=== PATIENT | male | born 1960 | race Caucasian/White ===

== ENCOUNTER 2017-02-17 16:33 | Observation (INO) | payer MEDICARE ==
[~2017-02-17] VITALS: Ht 182.9 cm; Wt 95.6 kg
[2017-02-17 16:52] VITALS: BP 138/86; PULSE 87; RESP 20; O2SAT 97
[2017-02-17] MEDS ORDERED: OXYC30TA48 PO (16:56)
[2017-02-17 17:41] LABS: BASOPHILS % (AUTO) 0.2 % (0-3); EOSINOPHILS % (AUTO) 3.7 % (0-5); MONOCYTES % (AUTO) 8.1 % (4-12); Mean Corpuscular Hemoglobin 30.6 pg (27.0-35.0); Mean Corpuscular Volume 90.6 fL (81-100); NEUTROPHILS % (AUTO) 59.6 % (40-74); Platelet Count 182 bil/L (150-400)
[2017-02-17 18:04] LABS: TROPONIN T < 0.010 ug/L (0.0-0.011)
--- NOTE | 2017-02-17 18:07 | ED.REPORT ---
HPI-Chest Pain 40 and Over Date of Service Feb 17, 2017 ED Provider: Luke Coppola MD Pt is a 56 y/o male with a history of 35 surgeries who presents to the ED sent from Cardiology c/o intermittent midsternal chest pain that radiates to L arm onset 7 days ago. Additional symptoms include numbness/tingling in L arm, increased SOB, palpitations, dizziness, lightheadedness, near syncope upon standing, diaphoresis, foot pain, and anxiety. He denies fevers, cough, nausea, or vomiting. In July, a nurse noticed that the pt was having intermittent irregular heartbeat that didn't show up on an EKG. He denies having a heart attack, hypertension, or diabetes. Nursing Notes Stated Complaint: HEART ISSUES Chief Complaint: Chest Pain Nursing Notes Reviewed: Yes Allergies: Coded Allergies: No Known Allergies (Unverified , 02/17/17) Scheduled Aspirin Chew (Aspirin Chew) 81 Mg Chew 81 MG PO HS Ibuprofen (Ibuprofen) 200 Mg Capsule 800 MG PO HS Melatonin (Melatonin) 10 Mg Tablet 30 MG PO HS Multivit-Min/FA/Lycopen/Lutein (Centrum Silver Men Tablet) 300 Mcg-600 Mcg-300 Mcg Tablet 1 EACH PO QAM Oxycodone (Roxicodone) 30 Mg Tablet 30 MG PO 5XD 0600, 1000, 1400, 1800, 2200 Scheduled PRN Oxymetazoline HCl (Nasal [place] Sinus) 30 Ml [place] 1 SPRAY NS BID PRN PRN For Congestion General Time Seen by MD: 18:02 Chief Complaint Chest pain Hx Obtained From: Patient Arrived By: Walk-in Sudden in Onset?: No Onset Occurred: 1 week ago Symptom Duration: Intermittent Quality: Painful Radiation: : Arm left Severity: Current: Mild Severity: Maximum: Moderate Recent Healthcare: No recent doctor visit, No recent hospitalization Similar Sx Previous: No Risk Factors )( CAD Risk Stratification Smoking Risk factors reviewed )( TAD Risk Stratification Risk factors reviewed )( PE Risk Stratification Risk factors reviewed Past Medical History Past Medical History Osteoarthritis Past Surgical History 35 surgeries Smoking History Current Every Day Smoker Ambulatory Status Independent Review of Systems Near syncope Constitutional: Denies: Fever Respiratory: Reports: Shortness of breath, Denies: Non-productive cough, Prod cough, clear Cardiovascular: Reports: Chest pain, Palpitations GI: Denies: Nausea, Vomiting Musculoskeletal: Reports: Extremity pain (Foot pain) Skin: Reports Diaphoresis Neurologic: Reports: Dizziness, Lightheaded, Numbness (in L arm) Psychiatric: Reports: Anxiety Complete sys rev & neg: except as marked. Physical Exam Initial Vital Signs Vital Signs (First) Date Time Temp Pulse Resp B/P Pulse Ox O2 Delivery O2 Flow Rate FiO2 02/17/17 16:52 36.1 87 20 138/86 97 Room Air Initial VS: Reviewed Head / Eyes: Atraumatic, Normocephalic Neck: Supple, Full range of motion Extremities: Vascular intact, Neuro intact, No swelling, No tenderness Skin: Warm, Dry, No cyanosis Neurologic: Alert, Oriented, Nonfocal Psychiatric: Mood/affect normal, Behavior normal, Normal thought content General/Constitutional: Awake, Alert Respiratory / Chest: Atraumatic, No respiratory distress Mild L rhonchi Cardiovascular: Heart rate NL, Regular rhythm, Heart sounds NL, No murmurs Abdomen: Soft, Non-tender Interpretation & Diagnostics Lab Results Interpretation Result Diagram: 02/17/17 1733 02/17/17 1733 Test 02/17/17 17:33 White Blood Count 9.1th/mm3 (3.8-10.1) Red Blood Count 4.67mil/mm3 (4.40-5.80) Hemoglobin 14.3g/dL (13.8-17.2) Hematocrit 42.3% (41.0-50.0) Mean Corpuscular Volume 90.6fL (81-100) Mean Corpuscular Hemoglobin 30.6pg (27.0-35.0) Mean Corpuscular Hemoglobin Concent 33.8% (32.0-37.0) Red Cell Distribution Width 13.3% (12.3-15.4) Platelet Count 182bil/L (150-400) Neutrophils (%) (Auto) 59.6% (40-74) Lymphocytes (%) (Auto) 28.3% (14-46) Monocytes (%) (Auto) 8.1% (4-12) Eosinophils (%) (Auto) 3.7% (0-5) Basophils (%) (Auto) 0.2% (0-3) Sodium Level 137mEq/L (134-144) Potassium Level 4.4mEq/L (3.5-5.2) Chloride Level 101mEq/L (97-108) Carbon Dioxide Level 21mmol/L (18-29) Blood Urea Nitrogen 24mg/dL (6-24) Creatinine 0.81mg/dL (0.76-1.27) Estimat Glomerular Filtration Rate 104mL/min (>59) Glucose Level 130mg/dL (60-99) Calcium Level 9.1mg/dL (8.5-10.1) Magnesium Level 2.1mg/dL (1.6-2.6) Total Bilirubin 0.2mg/dL (0.0-1.2) Aspartate Amino Transf (AST/SGOT) 27U/L (0-50) Alanine Aminotransferase (ALT/SGPT) 23U/L (0-44) Alkaline Phosphatase 86U/L (25-150) Troponin T < 0.010ug/L (0.0-0.011) Total Protein 6.8g/dL (6.4-8.4) Albumin 4.1g/dL (3.4-5.0) ECG Interpretation ECG Interpretation: Sinus rhythm, rate 80 Isolated T wave inversions in [address] changes Time: 17:15 Interpreted by: ED physician X-Ray Chest Interpretation Chest Xray Interpretation: IMPRESSION: Mild or early left lower lobe pneumonia. Dictated by: Talat Donnelly M.D. on 02/17/2017 at 18:22 Approved by: Talat Donnelly M.D. on 02/17/2017 at 18:23 View: Portable, 1 view Interpretation / Wet Read by: Interpret - Radiologist Re-Eval/Medical Decision Med Decision/Clinical Course 56-year-old male history of smoking presenting with chest pain on exertion and at rest over the last couple weeks. He was seen in cardiology and was found to be in bigeminy. His EKG here is normal sinus rhythm. Troponins initially are negative. Chest x-ray with left-sided pneumonia. His chest pain is associated dyspnea and dizziness. I have low suspicion based on the story that this is related to his pneumonia. I am concerned about unstable angina. I discussed with cardiology recommended admission for stress test in the morning. Heparin gtt started. Source of Hx: Old records Time of Eval: 19:24 Re-Evaluation/Progress Note: Pt rechecked. Discussed plan for admission. Pt understands and agrees with plan. All questions addressed. Consultation #1: Referral / Consult Name: Maria R Gipson MD Call Returned at: 18:54 Globe Changer: Agrees with eval, Agrees with plan Note: Discussed pt's case with drafter electronic, Dr. Gipson. He recommends admission and ok with Heparinization. Consultation #2: Referral / Consult Name: Fazal Ochoa MD Consulted With: Hospitalist Call Returned at: 19:32 Globe Changer: Will see patient, Agrees with plan, Accepts admit Note: Discussed pt's case with hospitalist, Dr. Ochoa. He accepts admission. Counseled Regarding: Diagnosis, Lab results, Need for admission Discharge & Departure Primary Impression: Unstable angina Additional Impressions: Chest pain Chest pain type: unspecified Qualified Code: R07.9 - Chest pain, unspecified Pneumonia Pneumonia type: due to unspecified organism Laterality: unspecified laterality Lung location: unspecified part of lung Qualified Code: J18.9 - Pneumonia, unspecified organism Disposition: ADMITTED TO HOSPITAL Discharge Condition All VS Reviewed: Yes Condition: Stable Referrals: NOPCP (PCP) Crit Care Except Billable Proc Time Spent: 75-104 minutes Services Performed: Patient management by me, Time spent at bedside, Reviewing test results, Reviewing imaging, Discussing patient care, Documentation in record, Time with fam/surrogate Scribe Attestation Portions of this note were transcribed by Leonor Montano. I, Dr. Coppola, personally performed the history, physical exam and medical decision-making; I reviewed and confirmed the accuracy of the information in the transcribed note. Luke Coppola MD Feb 17, 2017 18:07 Leonor Montano Feb 17, 2017 18:30
[2017-02-17 18:14] LABS: Magnesium 2.1 mg/dL (1.6-2.6)
--- NOTE | 2017-02-17 18:24 | DRSVH ---
PROCEDURE: X-RAY CHEST ONE VIEW, PORTABLE ([id number]) INDICATIONS: pain TECHNIQUE: One view of the chest was acquired. COMPARISON: None. FINDINGS: Surgical changes and devices: None. Lungs and pleura: No pleural effusions or pneumothorax. Lungs are abnormal with a pneumonia pattern at the left lower lobe just above the diaphragm. Mediastinum: Mediastinal contours appear normal. Heart size is normal. Bones and chest wall: No suspicious bony lesions. Overlying soft tissues appear unremarkable. IMPRESSION: Mild or early left lower lobe pneumonia. Dictated by: Talat Donnelly M.D. on 02/17/2017 at 18:22 Approved by: Talat Donnelly M.D. on 02/17/2017 at 18:23
[2017-02-17 18:34] VITALS: BP 130/70; PULSE 80; RESP 16; O2SAT 97
[2017-02-17] MEDS ORDERED: Azithromycin Inj 500 MG in Dextrose 5% 250 ML IV ONE (19:05)
[2017-02-17] MEDS ORDERED: Heparin 25K Unit/500mL 0.45 NS 25,000 UNIT in IV Premix 1 EACH IV ONE (19:05)
[2017-02-17] MEDS ORDERED: Heparin 5,000 Unit/mL Inj IVPUSH ONE (19:05)
[2017-02-17] MEDS ORDERED: cefTRIAXone Inj 2,000 MG in Dextrose 5% Minibag Plus 50 ML IV ONE (19:05)
[2017-02-17] MEDS ORDERED: Ondansetron 2 mg/mL 2 mL Inj IVPUSH PRN ×2 (19:35→20:00)
[2017-02-17] MEDS ORDERED: Alum-Mag Hydrox-Simeth 30 mL Suspension PO PRN ×2 (19:35→20:00)
[2017-02-17] MEDS ORDERED: Polyethylene Glycol (PEG) 17 Gm Powder PO PRN (20:00)
[2017-02-17] MEDS ORDERED: Heparin 25K Unit/500mL 0.45 NS 25,000 UNIT in IV Premix 1 EACH IV SCH (20:00)
[2017-02-17] MEDS ORDERED: OXYM30SP19 NS (20:01)
[2017-02-17] MEDS ORDERED: IBUP200C PO (20:01)
[2017-02-17] MEDS ORDERED: MULT-1104 PO (20:01)
[2017-02-17] MEDS ORDERED: ASPI81TA3 PO (20:01)
[2017-02-17] MEDS ORDERED: MELA10TA2 PO (20:01)
[2017-02-17 20:15] VITALS: BP 121/61; PULSE 71; RESP 16; O2SAT 93
--- NOTE | 2017-02-17 20:16 | PCM.HPMED ---
Subjective Date of Service Feb 17, 2017 Primary Provider: Admitting Physician: Fazal Ochoa MD Primary Care Physician: Marisol Attending Physician: Fazal Ochoa MD Admit Status: From the Emergency Department Chief Complaint: Chest pain, dizziness History of Present Illness: Mr. Miranda is a 56-year-old male with past medical history significant for 35 bone and joint surgeries, who presented to the ED from his appointment with Dr. Ballard of cardiology for intermittent substernal chest pain and near syncopal episodes. He reports a couple month history of near syncopal episodes but that they have gotten more frequent lately, last longer, and have some associated chest pain. He says the pain can radiate into his left arm, causing numbness and tingling in the his heart feels as if it is palpitating. He has no prior cardiac history, however a recent EKG on 02/14/2017 showed PVCs with bigeminal patterns. He denies any fevers, chills, shortness of breath, lower extremity edema, productive cough, nausea or vomiting. He mentioned some issues breathing at night but unable to express if this is nidia orthopnea or not. Review of Systems: A comprehensive review of systems was performed and negative except as in history of present illness Allergies Coded Allergies: No Known Allergies (Unverified , 02/17/17) Home Medications Oxycodone (Roxicodone) 30 Mg Tablet 30 MG PO Q6H PRN PRN For Pain PMH Osteoarthritis Surgical History 35 histories, mostly bone and joint for osteoarthritis Family History Denies any cardiac history Social History Hx Alcohol Use: No Hx Substance Use: No Hx Tobacco Use: Yes Smoking Status: Current Every Day Smoker (1.5 ppd) Living Arrangement: Alone Exam Vital Signs Vital Sign - Last Date Time Temp Pulse Resp B/P Pulse Ox O2 Delivery O2 Flow Rate FiO2 02/17/17 18:34 80 16 130/70 97 Room Air 02/17/17 16:52 36.1 Exam Gen.: Elderly gentleman standing upright stretching, leaning on cane in no acute distress HEENT: NCAT, PERRLA, EOMI. Membranes pink and moist. No exudate or cobblestoning in the oropharynx. Neck: Supple, JVD or thyromegaly. CV: Regular rate and rhythm, no murmurs, rubs, gallops. Pulmonary: Rhonchi notable left lung base, otherwise clear. No wheezes or rales. Abd: Soft, nontender, nondistended. Bowel sounds present. No guarding or rebound. Extremities: No clubbing, cyanosis, edema. Neuro: alert and oriented 3, CN II through XII intact. Muscle strength 5 globally without focal deficit. He ambulates with a cane. Psych: Slightly anxious. Lab and Diagnostics Result Diagram: 02/17/17 1733 02/17/17 1733 X-Rays, CTs and MRIs Chest XR 02/17/17 IMPRESSION: Mild or early left lower lobe pneumonia. Dictated by: Talat Donnelly M.D. on 02/17/2017 at 18:22 Approved by: Talat Donnelly M.D. on 02/17/2017 at 18:23 12-lead ECG ECG Interpretation: Sinus rhythm, rate 80 Isolated T wave inversions in [address] changes Assessment & Plan Mr. Miranda is a 56-year-old male with past medical history significant for 35 bone and joint surgeries, who presented to the ED from his appointment with Dr. Ballard of cardiology for intermittent substernal chest pain and near syncopal episodes that have increased in frequency and longevity. Chest pain, present on admission. Acute. Ongoing. - Likely unstable angina due to: Intermittent chest pain in a smoker, no ST elevation on EKG, negative troponin - EKG done in the ED again showed no ST changes - Dr. Gipson cardiology consulted, appreciate his recommendations: Heparin drip initiated Stress test ordered for morning - Monitor on telemetry - Trending troponin every 6h x2 Left lower lobe community-acquired pneumonia, present on admission. Acute. Ongoing. - Chest x-ray significant for left lower lobe consolidation - Continue ceftriaxone 2 g daily and azithromycin 500 mg daily - Pro calcitonin ordered - Monitor white count, patient symptoms/vitals - Consider repeat chest x-ray in a day or 2 Osteoarthritis, present on admission. Chronic. - Continue home oxycodone regimen 30 mg every 6 hours Tobacco use disorder, present on admission. Chronic. - Patient smokes 1.5 packs per day - Cessation counseled but patient is uninterested at this time - Nicotine patch as needed - Nicotine lozenge as needed if patch is not sufficient Acetaminophen as needed for mild pain, fever, headache. Bowel regimen as needed. Zofran for nausea as needed. Heparin drip for DVT prophylaxis. Patient status: Patient was admitted for observation with likely length of stay <2 midnights due to severity of presenting symptoms, medical workup, and overall treatment plan. Pain Evaluation: Adequate Pain Control VTE Prophylaxis: Other (heparin drip) Resuscitation Status: CPR: Attempt Resuscitation Froylan Wiley DO Feb 17, 2017 20:16 Fazal Ochoa MD Feb 18, 2017 06:38
[2017-02-17 20:27] VITALS: BP 118/74; PULSE 64; RESP 18; O2SAT 95
--- NOTE | 2017-02-17 22:43 | NUR ---
Admit Patient admitted to room 3028 at 2020 from ED, accompanied by son. Alert and oriented, able to answer all questions. Oriented to room, call light, plan of care, policies, intentional rounding. To be NPO at midnight for planned stress test, on heparin infusion, telemetry. Denies chest pain, reports chronic back pain. SBA to restroom, son staying overnight to assist. Call light within reach, intentional rounding.
[2017-02-17 22:55] VITALS: PULSE 87
[2017-02-18] VITALS (7 sets, daily range): BP systolic 114–144; BP diastolic 71–90; PULSE 51–83; RESP 16–18; O2SAT 94–98
--- NOTE | 2017-02-18 04:04 | NUR ---
Med List/Oxycodone Patient unsure of some of his doses of medication, med list not entered. For Oxycodone, patient states he takes 30mg "five times per day". Patient said he takes it at "6am, 10am, 2pm, 6pm, 10pm, and then again at 2am". Informed patient that his time schedule is six times per day, and wrote it on the board for visual. Patient verbalized understanding and said that he should be okay to miss the 2am dose - MD ordered 5x day. Patient woke up at 0330, stated that he thinks he is withdrawing and had 6/10 pain and chills. Patient adamantly requested the 0600 dose to be given at this time. Administered 0600 dose at 0350, notified MD. said that he would ask day team to verify oxycodone schedule, will pass on to day RN.
[2017-02-18] MEDS: Heparin 5,000 Unit/mL Inj IVPUSH PRN ×2 (04:46→16:47)
--- NOTE | 2017-02-18 04:49 | NUR ---
Heparin PTT result at 0440 was 36.5. Patient given 3000 units Heparin IV bolus, rate increased by 100 units/hr from 1000 to 1100 units/hr. Dose verified with second RN, patient updated on intervention.
[2017-02-18 08:38] LABS: BASOPHILS % (AUTO) 0.3 % (0-3); EOSINOPHILS % (AUTO) 5.3 % (0-5); MONOCYTES % (AUTO) 9.2 % (4-12); Mean Corpuscular Hemoglobin 30.7 pg (27.0-35.0); Mean Corpuscular Volume 91.8 fL (81-100); Platelet Count 175 bil/L (150-400)
--- NOTE | 2017-02-18 09:01 | NUR ---
Off Unit Pt. off unit to Nuc Med at 0850. Pt. declined Lorazepam IV prior to leaving unit but requested that it be available if needed for claustrophobia. Nuc med aware. Pt. left unit via wheelchair with transporter. Accompanied by son.
[2017-02-18 09:06] LABS: Magnesium 2.1 mg/dL (1.6-2.6)
--- NOTE | 2017-02-18 12:46 | NUR ---
Case Management: Attempted to explain COT[place] to pt. but he was adamant that we he didn't have Medicare of any form and refused to listen or sign. Arielle DIAZ RN
--- NOTE | 2017-02-18 13:20 | DRSVH ---
PROCEDURE: 1 DAY PHARMACOLOGICAL STRESS TEST Rest and pharmacological stress myocardial perfusion SPECT with gated imaging and ejection fraction RADIOPHARMACEUTICAL: 8.8 mCi Tc-99m tetrafosmin IV at rest and 25.9 mCi Tc-99m tetrafosmin IV at peak effect of pharmacological stress. A [id number]-ymddeinc was performed. INDICATIONS: Unstable angina, chest pain. TECHNIQUE: Radiopharmaceutical was injected at peak stress test, and also at rest. SPECT images wer e obtained. SPECT myocardial perfusion images were displayed in short axis, horizontal long axis, an d vertical long axis views. Gated images were reviewed using [employer] software. COMPARISON: None. CARDIAC STRESS: A pharmacologic stress test was performed under the supervision of an attending staff, using an infus ion of [employer]. Hemodynamic data: Blunted heart rate response to stress. Normal blood pressure response. Symptoms: The patient exhibited chest pressure during PVCs. Aminophylline: 100 mg administered EKG: No diagnostic changes of ischemia. Multiple PVCs are present, which increased with exercise. Fr equent PVCs. 1st degree AV block. FINDINGS: Raw data: There is good myocardial uptake of radiotracer. No significant motion artifacts. Left ventricle function: Gated images demonstrate normal left ventricular wall thickening. No segme ntal wall motion abnormalities. Left ventricle resting end diastolic volume is 125 mL. Left ventric le stress ejection fraction is 46%; normal range is above 45%. Myocardial perfusion: There is normal distribution of activity in the right and left ventricular maria elena cardium. No fixed or reversible perfusion defects. IMPRESSION: 1. No evidence of myocardial ischemia. 2. Normal left ventricular function. 3. Frequent PVCs, which increased during stress. 4. Blunted heart rate response to stress. 5. 1st degree AV block. Dictated by: Chuck De Los Santos M.D. on 02/18/2017 at 13:15 Approved by: Chuck De Los Santos M.D. on 02/18/2017 at 13:18
--- NOTE | 2017-02-18 15:33 | NUR ---
Anxiety/Tele Notified by air sampling and monitoring that pt. has been having bigeminal PVCs Q3-5min. millstone cleaner notified. MD and cushion sewer notified via page. No new orders received at this time. Denied pain but stated he can feel palpitations and very anxious. Lorazepam 0.5mg IV given. Pt. able to sleep briefly but woke up with severe anxiety. Attempted walking in hallways to calm himself. Continues to c/o palpitations. Pt. Vitals 114/83, Tele SR 70s-80s with bigeminal PVCs Q3-5min, O2 97% RA, T 36.5. paged again. No new orders received at this time. Pt. denies pain, nausea/vomiting. Heparin gtt infusing per protocol. Pt. currently sitting in room. Son at bedside. Frequent rounding being performed.
--- NOTE | 2017-02-18 18:31 | PCM.PNMED ---
Subjective Date of Service Feb 18, 2017 Subjective reports continued palpitations and lightheadedness. Also reports significant anxiety and wants to go out to smoke. After long discussion agrees to stay in his room and wait to be seen by cardiology consult Exam Vital Signs Vital Sign - Last Date Time Temp Pulse Resp B/P Pulse Ox O2 Delivery O2 Flow Rate FiO2 02/18/17 15:29 36.5 78 17 114/83 97 Room Air Intake and Output 02/17/17 02/17/17 02/18/17 Cumulative From/Thru 15:00 23:00 07:00 02/17/17 16:52 - 02/18/17 05:40 Intake Total 500 ml 50 ml 550 ml Output Total 600 ml 600 ml Balance 500 ml -550 ml -50 ml Intake Oral 50 ml 50 ml IV Total 500 ml 500 ml Output Urine Total 600 ml 600 ml # Voids 2 2 General: Alert, Cooperative, No Acute Distress Head: Normal Eyes: Scleral Anicteric Nose: Mucous Membr Moist/[place] Mouth: Mucous Membr Moist/[place] Neck: Supple Chest & Lungs: Chest Wall Normal, Clear to auscultation & percussion Cardiovascular: Regular Rate/Rhythm Pulses: NL carotid, radial, femoral, DP, PT Abdomen: Non-tender, Non-distended, Normoactive bowel tones, Soft Extremities: No cyanosis/clubbing/edma bilat Neurological: Grossly Neurologically Intact, Normal Speech IVs and Medications Medications Reviewed: Medications were reviewed in detail Lab and Diagnostics Result Diagram: 02/18/17 0937 02/18/17 0340 X-Rays, CTs and MRIs Chest XR 02/17/17 IMPRESSION: Mild or early left lower lobe pneumonia. Dictated by: Talat Donnelly M.D. on 02/17/2017 at 18:22 Approved by: Talat Donnelly M.D. on 02/17/2017 at 18:23 12-lead ECG ECG Interpretation: Sinus rhythm, rate 80 Isolated T wave inversions in [address] changes Assessment & Plan 56-year-old male with past medical history significant for 35 bone and joint surgeries, who presented to the ED from his appointment with Dr. Ballard of cardiology for intermittent substernal chest pain and near syncopal episodes that have increased in frequency and longevity. # Acute chest pain, present on admission. - Acute MT ruled out with negative Trop - Followup stress test result - Continue with current meds # Acute on somewhat chronic palpitation and lightheadedness - Frequent PVC's noted on Tele - Discussed with cardiology consult today. Will followup with official recs # Suspected left lower lobe community-acquired pneumonia, present on admission. - Chest x-ray significant for left lower lobe consolidation - Afebrile, no leukocytosis, no pulmonary symptoms and procalcitonin negative - Pneumonia seems unlikely. Will stop Abx. # Osteoarthritis, present on admission. Chronic. - Continue home oxycodone regimen 30 mg every 6 hours # Tobacco use disorder, present on admission. Chronic. - Patient smokes 1.5 packs per day - Cessation counseled but patient is uninterested at this time - Nicotine patch as needed - Nicotine lozenge as needed Dispo: 1-2 days pending cardiac workup and cardiology consult recs. VTE Prophylaxis: Other (heparin drip) Resuscitation Status: CPR: Attempt Resuscitation Girish Dominguez Feb 18, 2017 18:31
[2017-02-18] MEDS ORDERED: cefTRIAXone Inj 2,000 MG in Dextrose 5% Minibag Plus 50 ML IV SCH (19:00)
[2017-02-18] MEDS ORDERED: Azithromycin Inj 500 MG in Dextrose 5% w/Vial Mate 250 ML IV SCH (19:00)
--- NOTE | 2017-02-18 19:08 | PROG NOTE ---
[address] [address] PROGRESS NOTE PATIENT: DINORA ORO : 1960 MR#: [id number] ADMIT: 02/17/2017 JOB ID: [id number] DATE: 02/18/2017 CARDIOLOGY PROGRESS NOTE: CHIEF COMPLAINT: The patient came in with shortness of breath and near syncope. He did have findings of bigeminal PVCs on an EKG. During this admission he ruled out by serial cardiac markers. He had a stress test which is read as showing no evidence for ischemia, normal left ventricular function, as well as frequent PVCs which apparently increase during stress. SUBJECTIVE: The patient says he is doing well other than the PVCs. He has not had any syncopal events. PHYSICAL EXAMINATION: Blood pressure in the range of 130s to 140 systolic, heart rates in the 80s, afebrile, sats are 98% on room air. General: In no acute distress. Speaking in full sentences without apparent shortness of breath. Head and neck: Normocephalic, atraumatic. CURRENT MEDICATIONS: Include pain meds, Nicorette gum, and nicotine patch. IMPRESSION: The patient has normal left ventricular (LV) function. No evidence of ischemia on a recent stress test. He is likely symptomatic from frequent premature ventricular contractions (PVCs) perhaps because they are occurring in a bigeminal pattern. PLAN: 1. I am going to start him on low-dose metoprolol, which we can up-titrate as tolerated. 2. I will have to review the full treadmill test to see the morphology of the PVCs because apparently these did increase with exercise. KAYD
[2017-02-19 00:09] VITALS: BP 113/72; PULSE 64; RESP 18; O2SAT 93
[2017-02-19 04:00] VITALS: BP 129/83; PULSE 63; RESP 18; O2SAT 98
[2017-02-19 06:18] VITALS: PULSE 82
[2017-02-19 08:40] VITALS: BP 121/80; PULSE 69; RESP 19; O2SAT 95
[2017-02-19 09:09] VITALS: PULSE 70
--- NOTE | 2017-02-19 11:55 | PROG NOTE ---
[address] [address] PROGRESS NOTE PATIENT: DINORA ORO : 1960 MR#: [id number] ADMIT: 02/17/2017 JOB ID: [id number] DATE: 02/19/2017 CARDIOLOGY PROGRESS NOTE: CHIEF COMPLAINT: The patient came in with shortness of breath and palpitations. He had a stress test that was read as low risk. On the treadmill he did have some PVCs but these became most prominent in the period of recovery and many of them were in a bigeminal pattern. Last night I put him on a low dose of metoprolol and really since yesterday evening he has had no ectopy. He says he is walking around and he feels much better. PHYSICAL EXAMINATION: His blood pressure is 121-129, afebrile, heart rates in the 60s to 80s, sats are 95% on room air. General: In no acute distress. Speaking in full sentences without apparent shortness of breath. Head and neck: Normocephalic, atraumatic. Neck: No obvious JV distention. Heart: Regular. CURRENT MEDICATIONS: Include metoprolol 12.5 b.i.d. and other p.r.n. medications. He is also on aspirin. IMPRESSION: The patient is doing much better with a beta jackie. I am hoping that this is helping with his cessation of symptoms. PLAN: 1. I am going to increase him to t.i.d. metoprolol dosing 12.5 mg. Will give him another dose, have him walk around, and if he continues to feel fairly good we could discharge him home today with plan that I get to see him fairly expeditiously in an office followup. 2. He could also consider a trial of adding some magnesium oxide to his medications, which sometimes helps to suppress PVCs. ANDREW
[2017-02-19 13:22] VITALS: BP 117/74; PULSE 61; RESP 20; O2SAT 95
[2017-02-19] MEDS ORDERED: NICO1PAT6 TOPICAL (14:25)
[2017-02-19] MEDS ORDERED: METO25TA6 PO (14:25)
--- NOTE | 2017-02-19 14:29 | PCM.DIMED ---
Discharge Instructions Date of Service Feb 19, 2017 Dates of Hospitalization Feb 17, 2017 at 19:50 Discharge Diagnosis Discharge Diagnosis # Acute symptomatic premature ventricular contractions (PVCs) occurring in a bigeminal pattern. Present on admission. # Acute chest pain, present on admission. Ruled out for acute myocardial infarction. # Suspected left lower lobe community-acquired pneumonia on admission, clinically ruled out. # Chronic osteoarthritis, present on admission. # Tobacco use disorder, present on admission. Diet Discharge Diet: Heart Healthy Activity Discharge Activity: No restrictions Call your provider Call your provider for: Fever or Chills, Shortness of breath, Chest pain, Weakness (unilateral) Patient Instructions Patient Instructions Seek immediate medical attention if any new or worsening signs or symptoms occur. Follow-up plan 1. Followup with primary care provider in 7-10 days 2. Followup with cardiology (Dr. Ballard) in 1-2 weeks Follow-up Provider: Kiki Ballard MD, Masoud Feb 19, 2017 14:29
--- NOTE | 2017-02-19 15:10 | NUR ---
Social Work: Brief Note EMR reviewed. Patient is on day 2 of hospitalization for chest pain with unstable angina per H&P. Patient was discussed in morning rounds. Patient has been deemed medically stable for discharge today per MD. Patient has no discharge needs. Transportation will be provided by family. Patient has no additional needs at this time. GUY Montalvo
--- NOTE | 2017-02-19 15:12 | NUR ---
Discharge D/C to home with son. Discharge packet including d/c instructions, f/u info, care notes and RXs discussed and provided. No further questions about plan of care at this time. Pt requested to ambulate off floor and left with all belongings in no sign of distress.
--- NOTE | 2017-02-19 18:32 | PCM.DC.MED ---
Discharge Summary Date of Service Feb 19, 2017 Dates of Hospitalization Date of Hospital Admission Feb 17, 2017 at 19:50 Date of Discharge: Feb 19, 2017 Providers: Admitting Physician: Fazal Ochoa MD Primary Care Physician: Raz Zepeda MD Attending Physician: Girish Rock Diagnosis at Time of Discharge Diagnosis at Time of Discharge # Acute symptomatic premature ventricular contractions (PVCs) occurring in a bigeminal pattern. Present on admission. # Acute chest pain, present on admission. Ruled out for acute myocardial infarction. # Suspected left lower lobe community-acquired pneumonia on admission, clinically ruled out. # Chronic osteoarthritis, present on admission. # Tobacco use disorder, present on admission. Consultations 1. Cardiology (Dr. Ballard) Procedures XRay, CTs & MRIs Chest XR 02/17/17 IMPRESSION: Mild or early left lower lobe pneumonia. Dictated by: Talat Donnelly M.D. on 02/17/2017 at 18:22 Approved by: Talat Donnelly M.D. on 02/17/2017 at 18:23 Other Diagnostics Date of Service: 02/18/17 0500 PROCEDURE: 1 DAY PHARMACOLOGICAL STRESS TEST Rest and pharmacological stress myocardial perfusion SPECT with gated imaging and ejection fraction IMPRESSION: 1. No evidence of myocardial ischemia. 2. Normal left ventricular function. 3. Frequent PVCs, which increased during stress. 4. Blunted heart rate response to stress. 5. 1st degree AV block. Dictated by: Chuck De Los Santos M.D. on 02/18/2017 at 13:15 Approved by: Chuck De Los Santos M.D. on 02/18/2017 at 13:18 Brief History As noted in H&P by Dr. Wiley: Mr. Miranda is a 56-year-old male with past medical history significant for 35 bone and joint surgeries, who presented to the ED from his appointment with Dr. Ballard of cardiology for intermittent substernal chest pain and near syncopal episodes. He reports a couple month history of near syncopal episodes but that they have gotten more frequent lately, last longer, and have some associated chest pain. He says the pain can radiate into his left arm, causing numbness and tingling in the his heart feels as if it is palpitating. He has no prior cardiac history, however a recent EKG on 02/14/2017 showed PVCs with bigeminal patterns. He denies any fevers, chills, shortness of breath, lower extremity edema, productive cough, nausea or vomiting. He mentioned some issues breathing at night but unable to express if this is nidia orthopnea or not. Hospital Course # Acute symptomatic premature ventricular contractions (PVCs) occurring in a bigeminal pattern. Present on admission. - Followed by cardiology consult and started on Metoprolol 12.5mg tid - Dr. Ballard plans to further follow patient as outpatient later this week # Acute chest pain, present on admission. - Acute VA ruled out with negative Trop - Stress test negative as noted above # Acute on somewhat chronic palpitation and lightheadedness - Frequent PVC's noted as noted above - Cardiology consult and plan as noted above # Suspected left lower lobe community-acquired pneumonia, present on admission. Clinically ruled out - Afebrile, no leukocytosis, no pulmonary symptoms and procalcitonin negative # Osteoarthritis, present on admission. Chronic. - Continued home oxycodone regimen 30 mg every 6 hours # Tobacco use disorder, present on admission. Chronic. - Patient smokes 1.5 packs per day - Cessation counseled but patient is uninterested at this time - Nicotine patch as needed Exam Vital Signs (Last) Date Time Temp Pulse Resp B/P Pulse Ox O2 Delivery O2 Flow Rate FiO2 02/19/17 13:22 36.8 61 20 117/74 95 Room Air Exam General: Alert, Cooperative, No Acute Distress Head: Normal Eyes: Scleral Anicteric Nose: Mucous Membr Moist/Mcpherson Mouth: Mucous Membr Moist/Mcpherson Neck: Supple Chest & Lungs: Chest Wall Normal, Clear to auscultation bilat Cardiovascular: Regular Rate/Rhythm Abdomen: Non-tender, Non-distended, Normoactive bowel tones, Soft Extremities: No cyanosis/clubbing/edema bilat Neurological: Grossly Neurologically Intact, Normal Speech Test 02/17/17 17:33 02/18/17 03:40 02/18/17 09:37 02/18/17 15:45 Total Bilirubin 0.2mg/dL (0.0-1.2) Aspartate Amino Transf (AST/SGOT) 27U/L (0-50) Alanine Aminotransferase (ALT/SGPT) 23U/L (0-44) Alkaline Phosphatase 86U/L (25-150) Total Protein 6.8g/dL (6.4-8.4) Albumin 4.1g/dL (3.4-5.0) White Blood Count 7.7th/mm3 (3.8-10.1) Red Blood Count 4.66mil/mm3 (4.40-5.80) Mean Corpuscular Volume 91.8fL (81-100) Mean Corpuscular Hemoglobin 30.7pg (27.0-35.0) Mean Corpuscular Hemoglobin Concent 33.4% (32.0-37.0) Red Cell Distribution Width 13.7% (12.3-15.4) Platelet Count 175bil/L (150-400) Neutrophils (%) (Auto) 47.0% (40-74) Lymphocytes (%) (Auto) 38.1% (14-46) Monocytes (%) (Auto) 9.2% (4-12) Eosinophils (%) (Auto) 5.3% (0-5) Basophils (%) (Auto) 0.3% (0-3) Sodium Level 140mEq/L (134-144) Potassium Level 4.3mEq/L (3.5-5.2) Chloride Level 106mEq/L (97-108) Carbon Dioxide Level 20mmol/L (18-29) Blood Urea Nitrogen 20mg/dL (6-24) Creatinine 0.84mg/dL (0.76-1.27) Estimat Glomerular Filtration Rate 100mL/min (>59) Glucose Level 103mg/dL (60-99) Calcium Level 9.3mg/dL (8.5-10.1) Magnesium Level 2.1mg/dL (1.6-2.6) Procalcitonin 0.03ng/mL (0.00-0.08) Hemoglobin 15.2g/dL (13.8-17.2) Hematocrit 44.9% (41.0-50.0) Troponin T 0.010ug/L (0.0-0.011) Activated Partial Thromboplast Time 42.0sec (22.8-33.0) Discharge Medications Discharge Medications Aspirin Chew (Aspirin Chew) 81 Mg Chew 81 MG PO HS (Reported) Ibuprofen (Ibuprofen) 200 Mg Capsule 800 MG PO HS (Reported) Melatonin (Melatonin) 10 Mg Tablet 30 MG PO HS (Reported) Metoprolol Tartrate (Metoprolol Tartrate) 25 Mg Tablet 12.5 MG PO TID Prescribed by: GIRISH ROCK MD Multivit-Min/FA/Lycopen/Lutein (Centrum Silver Men Tablet) 300 Mcg-600 Mcg-300 Mcg Tablet 1 EACH PO QAM (Reported) Nicotine 21 mg/24 hr Patch (Nicotine 21 mg/24 hr Patch) 1 Each Patch.td24 1 PATCH TOPICAL DAILY Prescribed by: GIRISH ROCK MD Oxycodone (Roxicodone) 30 Mg Tablet 30 MG PO 5XD (Reported) 0600, 1000, 1400, 1800, 2200 As needed Oxymetazoline HCl (Nasal Dubois Sinus) 30 Ml Dubois 1 SPRAY NS BID PRN PRN For Congestion (Reported) Followup Plan Disposition: Home Follow-up plan 1. Followup with primary care provider in 7-10 days 2. Followup with cardiology (Dr. Ballard) in 1-2 weeks Discharge Diet: Heart Healthy Discharge Activity: No restrictions Patient Instructions Seek immediate medical attention if any new or worsening signs or symptoms occur. Follow-up Provider: Kiki Ballard MD Time spent 35 min copies to: Kiki Ballard MD, [place] Feb 19, 2017 18:32
== END 2017-02-19 15:00 | disposition home or self-care (01) ==
LOC: SED 16:33 → MPC 19:50
PROVIDERS: ADMIT Hospitalist; ATTEND Hospitalist
DX: I49.3 Ventricular premature depolarization (principal); R07.9 Chest pain, unspecified; F17.210 Nicotine dependence, cigarettes, uncomplicated; M19.90 Unspecified osteoarthritis, unspecified site; Z98.890 Other specified postprocedural states; Z79.891 Long term (current) use of opiate analgesic
CPT/HCPCS: 36415; 71010; 78452; 80048; 80053; 83735; 84145; 84484; 85014; 85018; 85025; 85730; 87040; 93005; 93017; 96361; 96365; 96366; 96367; 96375; 96376; 99291; 99292; A9502; G0378; J0280; J0456; J0696; J1644; J2060; J2785